=== PATIENT | female | born 1975 | race African-American/Black ===

== ENCOUNTER 2018-12-20 22:03 | Emergency (ER) | payer OTHER ==
[~2018-12-20] VITALS: Ht 170.2 cm; Wt 95.3 kg
[~2018-12-20 22:03] MED LIST: HYDROCHLOROTHIA25 M2; LISINOPRIL10 MG; NABUMETONE 500500 M1; TIZANIDINE HCL4 MG; VENTOLIN HFA INH8 GM
[2018-12-21] MEDS ORDERED: NORCO 5-325 TA1 EACH PO (00:32)
[2018-12-21] MEDS ORDERED: FLEXERIL PO (00:32)
[2018-12-21] MEDS ORDERED: IBUPROFEN 600600 M1 PO (00:32)
[2018-12-21] MEDS ORDERED: SENNA-DOCUSATE1 EAC1 PO (00:32)
[2018-12-21 01:09] VITALS: BP 125/84
== END 2018-12-21 01:20 | disposition home or self-care (01) ==
LOC: ER 22:03
DX: S39.012A Strain of muscle, fascia and tendon of lower back, initial encounter (principal); S16.1XXA Strain of muscle, fascia and tendon at neck level, initial encounter; S29.012A Strain of muscle and tendon of back wall of thorax, initial encounter; I10 Essential (primary) hypertension; J45.909 Unspecified asthma, uncomplicated; Z90.49 Acquired absence of other specified parts of digestive tract; Z90.710 Acquired absence of both cervix and uterus; Z88.0 Allergy status to penicillin; V89.2XXA Person injured in unspecified motor-vehicle accident, traffic, initial encounter; Y93.89 Activity, other specified; Y92.89 Other specified places as the place of occurrence of the external cause; Y99.8 Other external cause status